=== PATIENT | male | born 1960 | race African-American/Black ===

== ENCOUNTER 2023-09-24 10:20 | Emergency (ER) | payer BC | END 2023-09-24 10:56 | disposition home or self-care (01) | LOC: NAV ERS 10:20 | DX: R21 Rash and other nonspecific skin eruption (principal); E11.9 Type 2 diabetes mellitus without complications; I11.0 Hypertensive heart disease with heart failure; I50.9 Heart failure, unspecified; Z79.899 Other long term (current) drug therapy; Z87.891 Personal history of nicotine dependence | CPT/HCPCS: 99282 ==